=== PATIENT | male | born 1990 | race Two or more races ===

== ENCOUNTER 2017-02-03 10:31 | Emergency (ER) | payer SELFPAY ==
[~2017-02-03] VITALS: Ht 170.2 cm; Wt 68.9 kg
[~2017-02-03 10:31] MED LIST: IBUPROFEN600 MG ORAL; NKM; NORCO 5-325 TA1 EACH ORAL
[2017-02-03 11:02] VITALS: BP 127/91
[2017-02-03] MEDS ORDERED: ROBAXIN500 MG PO (11:21)
[2017-02-03] MEDS ORDERED: IBUPROFEN600 MG ORAL (11:21)
--- NOTE | 2017-02-03 11:26 | Emergency Room Report ---
History of Present Illness General Chief Complaint: Back Pain-No Injury Source: Patient Present Illness HPI 26 yo M F with p/w back pain for 1 days. Patient states pain stated today while he was in his car. Pain is localized to b/l upper back, sharp in nature, non radiating. Movement worsens pain. There is no alleviating factors. This is the first occurrence of back pain. Patient has experienced this similar pain in the past. pt states pain became better upon coming to the ED Denies trauma. Denies extremity weakness/numbness, no bowel/bladder retention or incontinence, saddle anesthesia. Denies fever, chills, abdominal pain, n/v, dysuria/hematuria. No history of IVDA Allergies: Coded Allergies: No Known Allergies (Unverified , 07/19/13) Patient History Past Medical History: none Past Surgical History: none Pertinent Family History: none Nursing Documentation-[facility] Past Medical History: No Stated History Review of Systems Musculoskeletal: Reports: back pain All Other Systems: negative except mentioned in HPI Physical Exam Vital Signs Date Time Temp Pulse Resp B/P Pulse Ox O2 Delivery O2 Flow Rate FiO2 02/03/17 10:49 98.1 69 18 127/91 99 Room Air General Appearance: normal inspection, well appearing, no apparent distress, alert, GCS 15, non-toxic Head: normocephalic, atraumatic Eyes: bilateral eye EOMI, bilateral eye PERRL, bilateral eye normal inspection ENT: normal ENT inspection, normal pharynx, normal voice, moist mucus membranes Neck: normal inspection, other - paraspinal cervical tenderness no midline tndenrsss. able to flex neck without issue. limited rom of rotation b/l but able to rotate >30 degrees Respiratory: normal inspection, lungs clear, normal breath sounds, no respiratory distress, no retraction, no wheezing, speaking full sentences, chest symmetrical Cardiovascular #1: normal inspection, regular rate, rhythm, no edema, normal capillary refill Gastrointestinal: normal inspection, non tender, soft, non-distended, no guarding Genitourinary: no CVA tenderness Musculoskeletal: normal inspection, normal range of motion, other - paraspinal thoracic and crvical tnderness no gross bonydeformities. 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 gait normal Medical Decision Making Diagnostic Impression: Primary Impression: Musculoskeletal back pain ER Course 26 yo M F with pw 1 day of back pain DDX: likely musculoskeletal back pain vs. muscular strain fracture is unlikely given patients age, no midline tenderness, no history of trauma, and that patient is ambulatory. Therefore, at this time no imaging is indicated Serious diagnoses such as cord compression, epidural abscess, meningitis is unlikely in this patient given the clinical scenario and abscess of neurological symptoms or findings. Patient appears nontoxic. Plan: motrin ER course: Patient has remained nontoxic appearing and ambulatory in the ED. Disposition: Patient will be discharged to home with prescription of motrin and robaxin. Patient cautioned of the effects of robaxin including possible impairment of physical or mental abilities. Patient was instructed to refrain from operating machinery or driving. Patient is also cautioned on the GI effects of motrin and to take sparingly. Patient verbalized understanding. Strict precautions discussed with patient on when to emergently return to the ED which includes severe/worsening back pain, leg weakness/numbness, urinary retention/incontinence, fever or chills, which may indicate severe illness. Patient is to follow up with their PMD within 5 days. Patient agrees with plan. Last Vital Signs Date Time Temp Pulse Resp B/P Pulse Ox O2 Delivery O2 Flow Rate FiO2 02/03/17 11:02 98.1 18 127/91 99 Room Air 02/03/17 10:49 69 Disposition: HOME, SELF-CARE Condition: Improved Scripts Ibuprofen* (MOTRIN*) 600 Mg Tablet 600 MG ORAL Q8H Y for For Pain, #30 TAB 0 Refills Prov: Yulia Riley M.D. 02/03/17 Methocarbamol* (ROBAXIN*) 500 Mg Tablet 500 MG PO QID, #28 TAB 0 Refills Prov: Yulia Riley M.D. 02/03/17 Referrals: NOT CHOSEN RAHDA/,REFERRING (PCP) Yulia Riley M.D. Feb 03, 2017 11:26
[2017-02-03 11:34] VITALS: BP 118/83
== END 2017-02-03 11:36 | disposition home or self-care (01) ==
LOC: EMR 11:10
DX: M54.9 Dorsalgia, unspecified (principal)
CPT/HCPCS: 99283

== ENCOUNTER 2018-02-25 10:16 | Emergency (ER) | payer OTHER ==
[~2018-02-25] VITALS: Ht 170.2 cm; Wt 68.0 kg
[~2018-02-25 10:16] MED LIST changes: +ROBAXIN500 MG PO
[2018-02-25 10:50] VITALS: BP 133/97
[2018-02-25 11:06] LABS: APPEARANCE,URINE CLEAR; BILIRUBIN, URINE NEGATIVE (NEGATIVE); COLOR,URINE PALE YELLOW; GLUCOSE, URINE (UA) NEGATIVE (NEGATIVE); KETONES,URINE NEGATIVE (NEGATIVE); LEUKOCYTE ESTERASE ,URINE NEGATIVE (NEGATIVE); NITRITE,URINE NEGATIVE (NEGATIVE); PH,URINE 8 (4.5-8.0); PROTEIN,URINE NEGATIVE (NEGATIVE); UROBILINOGEN,URINE NORMAL MG/DL (0.0-1.0)
--- NOTE | 2018-02-25 11:25 | Emergency Room Report ---
History of Present Illness General Chief Complaint: Abdominal Pain Source: Patient Present Illness HPI The patient states that he has pain in his left mid abdomen and left flank. He states that this is been going on for about 2 months. He associates the onset of the symptoms with a trip to [place]. He denies dysuria hematuria. He denies fever or chills. He denies nausea or vomiting. He denies constipation or diarrhea. He denies testicular pain. He denies penile discharge. He states that he has a low-grade achy pain. He states the pain resolves whenever he lays flat. He has worsening of the pain when he is standing and lifts his left thigh. He admits that he does do heavy lifting [place] He has no other complaints. Allergies: Coded Allergies: No Known Allergies (Unverified , 07/19/13) Patient History Past Medical History: none Past Surgical History: none Social History: Denies: smoking, alcohol use, drug use Reviewed Nursing Documentation: PMH: Agreed; PSxH: Agreed Nursing Documentation-PMH Past Medical History: No Stated History Review of Systems All Other Systems: negative except mentioned in HPI Physical Exam Vital Signs Date Time Temp Pulse Resp B/P (MAP) Pulse Ox O2 Delivery O2 Flow Rate FiO2 02/25/18 10:36 97.9 64 14 129/85 97 Room Air 97.9 Sp02 EP Interpretation: reviewed, normal General Appearance: no apparent distress, alert, GCS 15, non-toxic Head: normocephalic, atraumatic Eyes: bilateral eye normal inspection, bilateral eye PERRL ENT: hearing grossly normal, normal pharynx, no angioedema, normal voice Neck: full range of motion, supple/symm/no masses Respiratory: chest non-tender, lungs clear, normal breath sounds, no respiratory distress, no retraction, no accessory muscle use, speaking full sentences Cardiovascular #1: regular rate, rhythm, no edema Gastrointestinal: normal bowel sounds, non tender, soft, non-distended, no guarding, no rebound, other - When the patient stands he has a tenderness along the muscle on the left side. Rectal: deferred Musculoskeletal: back normal, gait/station normal, normal range of motion, non- tender, calf tenderness Neurologic: alert, oriented x3, responsive, motor strength/tone normal, sensory intact, speech normal Psychiatric: judgement/insight normal, memory normal, mood/affect normal, no suicidal/homicidal ideation Skin: normal color, no rash, warm/dry, well hydrated Medical Decision Making Diagnostic Impression: Primary Impression: Strain of muscle, fascia and tendon of abdomen, initial encounter ER Course This patient has a clinical presentation consistent with muscle strain. There are no red flags on physical exam or history that would make me concerned for underlying fracture. I did obtain a CT of the abdomen and pelvis as a precaution given the location for concern that there could be urolithiasis. However, CT of the abdomen and pelvis was negative. The patient has pain with range of motion and has tenderness to palpation along the muscle. There is no evidence of compartment syndrome. There is no neurologic deficit. The patient was instructed on supportive home measures. No emergency medical condition was identified. The patient was given return precautions and followup instructions. Laboratory Tests Test 02/25/18 10:51 Urine Color Pale yellow Urine Appearance Clear Urine pH 8 (4.5-8.0) Urine Specific Kenneth 1.010 (1.005-1.035) Urine Protein Negative (NEGATIVE) Urine Glucose (UA) Negative (NEGATIVE) Urine Ketones Negative (NEGATIVE) Urine Blood Negative (NEGATIVE) Urine Nitrite Negative (NEGATIVE) Urine Bilirubin Negative (NEGATIVE) Urine Urobilinogen Normal MG/DL (0.0-1.0) Urine Leukocyte Esterase Negative (NEGATIVE) Urine Opiates Screen Negative (NEGATIVE) Urine Barbiturates Screen Negative (NEGATIVE) Phencyclidine (PCP) Screen Negative (NEGATIVE) Urine Amphetamines Screen Negative (NEGATIVE) Urine Benzodiazepines Screen Negative (NEGATIVE) Urine Cocaine Screen Negative (NEGATIVE) Urine Marijuana (THC) Screen Negative (NEGATIVE) CT/MRI/US Diagnostic Results CT/MRI/US Diagnostic Results : Imaging Test Ordered: CT abd/pelvis Impression No acute findings. See official report. Last Vital Signs Date Time Temp Pulse Resp B/P (MAP) Pulse Ox O2 Delivery O2 Flow Rate FiO2 02/25/18 10:36 97.9 64 14 129/85 97 Room Air 97.9 Status: improved Disposition: HOME, SELF-CARE Condition: Improved Referrals: JOSE WALLACE,REFERRING (PCP) Sarina Gonsalez DO Feb 25, 2018 11:24
--- NOTE | 2018-02-25 12:04 | Diagnostic Imaging Report ---
Indication: Abdominal pain Technique: Continuous helical transaxial imaging of the abdomen and pelvis was obtained from the lung bases to the pubic symphysis. No intravenous contrast was administered. Coronal 2-D reformats were also obtained. Automatic Exposure Control was utilized. Total Dose length Product (DLP): 483.[address] Dose Index Volume (CTDIvol): 10.38 mGy Comparison: none Findings: Lung bases are clear. No nephrolithiasis or hydronephrosis identified. Urinary bladder is unremarkable. The appendix is normal. There is no free fluid or free air. There is no evidence of bowel obstruction. Evaluation of solid organs is limited on noncontrast imaging. IMPRESSION: No acute findings appreciated. Limited evaluation. The CT scanner at [facility] is accredited by the [employer] and the scans are performed using dose optimization techniques as appropriate to a performed exam including Automatic Exposure control.
[2018-02-25 12:50] VITALS: BP 129/81
== END 2018-02-25 12:53 | disposition home or self-care (01) ==
LOC: EMR 10:54
DX: S39.011A Strain of muscle, fascia and tendon of abdomen, initial encounter (principal); R10.84 Generalized abdominal pain; X58.XXXA Exposure to other specified factors, initial encounter; Y93.9 Activity, unspecified; Y92.9 Unspecified place or not applicable; Y99.9 Unspecified external cause status
CPT/HCPCS: 74176; 80307; 81003; 99284

== ENCOUNTER 2018-03-13 10:38 | Emergency (ER) | payer OTHER ==
[~2018-03-13] VITALS: Ht 170.2 cm; Wt 68.0 kg
--- NOTE | 2018-03-13 10:59 | Emergency Room Report ---
History of Present Illness General Chief Complaint: Dyspnea/Respdistress Source: Patient Present Illness HPI Patient presents with complaints of burning sensation to the left lower chest area Patient reports that he has been waking up in the middle night with shortness of breath sensation He also described a pleuritic component intermittently Patient reports symptoms ongoing for the past month He has spoken to his primary physician who was getting a referral to cardiology Patient also presented here with discomfort in the flank region and the beginning of February with CT imaging which was benign Today's report is regarding the burning sensation patient holds the lower rib cage on the left side mid axillary and midclavicular There is no rash that he has seen denies any fall or trauma Denies any recent travel denies any calf pain or swelling Allergies: Coded Allergies: No Known Allergies (Unverified , 07/19/13) Patient History Past Medical History: see triage record Pertinent Family History: none Reviewed Nursing Documentation: PMH: Agreed; PSxH: Agreed Nursing Documentation-PMH Past Medical History: No History, Except For History Of Psychiatric Problem: Yes - anxiety Review of Systems All Other Systems: negative except mentioned in HPI Physical Exam Vital Signs Date Time Temp Pulse Resp B/P (MAP) Pulse Ox O2 Delivery O2 Flow Rate FiO2 03/13/18 10:43 97.8 78 14 132/90 98 Room Air 97.9 Sp02 EP Interpretation: reviewed, normal General Appearance: well appearing, no apparent distress Head: normocephalic, atraumatic Eyes: bilateral eye PERRL, bilateral eye EOMI ENT: hearing grossly normal, normal pharynx, TMs + canals normal, uvula midline Neck: full range of motion, supple, no meningismus, no bony tend Respiratory: lungs clear, normal breath sounds, no rhonchi, no respiratory distress, no retraction, no accessory muscle use Cardiovascular #1: normal peripheral pulses, regular rate, rhythm, no edema, no gallop, no JVD, no murmur Gastrointestinal: normal bowel sounds, non tender, soft, no mass, no organomegaly, non-distended, no guarding, no hernia, no pulsatile mass, no rebound Genitourinary: no CVA tenderness Musculoskeletal: normal inspection Neurologic: oriented x3, responsive, immersion 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 III-XII nml as tested, motor strength/ tone normal, sensory intact Psychiatric: mood/affect normal Skin: normal color, no rash, warm/dry, palpation normal Lymphatic: normal inspection, no adenopathy Medical Decision Making Diagnostic Impression: Primary Impression: Chest pain Additional Impression: Pleurisy ER Course Given the patient's history exam and presentation multiple differentials are considered Including but not limited to cardiac, cardiopulmonary, vascular pathology patient has CT abdomen on file from recent presentation Also urine sample At this time x-ray and EKG were obtained Both within normal limits Patient describes some pleuritic component to his discomfort My suspicion for pulmonary embolism given his scoring is low EKG also does not show any obvious acute pathology With further discussion patient reports [place] and does do significant lifting and physical movements which she thinks might be contributing to his presentation Otherwise patient is stable for close outpatient follow-up EKG Diagnostic Results Rate: normal Rhythm: NSR ST Segments: no acute changes Rhythm Strip Diag. Results EP Interpretation: yes Rate: 66 Rhythm: NSR, no PVC's, no ectopy Chest X-Ray Diagnostic Results Chest X-Ray Diagnostic Results : Chest X-Ray Ordered: Yes # of Views/Limited/Complete: 1 View Indication: Chest Pain EP Interpretation: Yes Interpretation: no consolidation, no effusion, no pneumothorax Impression: No acute disease Electronically Signed by: Yecenia Kate DO Last Vital Signs Date Time Temp Pulse Resp B/P (MAP) Pulse Ox O2 Delivery O2 Flow Rate FiO2 03/13/18 10:56 70 14 Room Air 03/13/18 10:43 97.8 132/90 98 97.9 Status: improved Disposition: HOME, SELF-CARE Condition: Stable Scripts Ibuprofen* (MOTRIN*) 600 Mg Tablet 600 MG ORAL Q8H PRN for For Pain, #20 TAB 0 Refills Prov: Yecenia Kate DO 03/13/18 Additional Instructions: Patient is provided with the discharge instructions notified to follow up with primary doctor in the next 2-3 days otherwise return to the er with any worsening symptoms. Please note that this report is being documented using [employer] technology. This can lead to erroneous entry secondary to incorrect interpretation by the dictating instrument. Yecenia Kate DO Mar 13, 2018 10:59
[2018-03-13] MEDS ORDERED: IBUPROFEN600 MG ORAL (12:56)
[2018-03-13 13:35] VITALS: BP 132/90
--- NOTE | 2018-03-14 08:54 | Diagnostic Imaging Report ---
Indication: Chest pain, shortness of breath Technique: XRAY Chest 1v Comparison: None Findings: Heart size and mediastinal contours are within normal limits for AP technique. There is no focal consolidation, pneumothorax or pleural effusion. Osseous structures demonstrate no acute abnormality. Impression: No radiographic evidence of acute cardiopulmonary disease.
--- NOTE | 2018-03-14 19:56 | Cardiology Report ---
APPROVED REPORT EKG Measurement Heart [id number] Normal sinus rhythm with sinus arrhythmia Normal ECG
== END 2018-03-13 13:37 | disposition home or self-care (01) ==
LOC: EMR 11:01
DX: R07.9 Chest pain, unspecified (principal); F41.9 Anxiety disorder, unspecified; R09.1 Pleurisy
CPT/HCPCS: 71045; 93005; 99283

== ENCOUNTER 2018-05-10 07:54 | Emergency (ER) | payer OTHER ==
[~2018-05-10] VITALS: Ht 170.2 cm; Wt 65.8 kg
[2018-05-10 08:05] VITALS: BP 135/93
[2018-05-10 08:25] VITALS: BP 135/93
--- NOTE | 2018-05-10 08:28 | Emergency Room Report ---
History of Present Illness General Chief Complaint: Abdominal Pain Source: Patient Present Illness HPI Patient presents reporting that he's having similar discomfort to previous Reports that he is having ongoing issues with feeling abdominal cramping Diarrhea intermittently Increased nausea as well Denies any chest pain Denies any fevers or chills denies any neck pain or photophobia denies any recent travel He reports that the symptoms can occur without any warning Denies any blood in the stool denies any recent trauma Patient reports that he was also seen at [facility] and did not have any blood work done at that time Allergies: Coded Allergies: No Known Allergies (Unverified , 05/10/18) Patient History Past Medical History: see triage record Pertinent Family History: none Reviewed Nursing Documentation: PMH: Agreed; PSxH: Agreed Review of Systems All Other Systems: negative except mentioned in HPI Physical Exam Vital Signs Date Time Temp Pulse Resp B/P (MAP) Pulse Ox O2 Delivery O2 Flow Rate FiO2 05/10/18 07:57 97.9 72 16 135/93 100 Room Air Sp02 EP Interpretation: reviewed, normal General Appearance: well appearing, no apparent distress Head: normocephalic, atraumatic Eyes: bilateral eye PERRL, bilateral eye EOMI ENT: hearing grossly normal, normal pharynx, TMs + canals normal, uvula midline Neck: full range of motion, supple, no meningismus, no bony tend Respiratory: lungs clear, normal breath sounds, no rhonchi, no respiratory distress, no retraction, no accessory muscle use Cardiovascular #1: normal peripheral pulses, regular rate, rhythm, no edema, no gallop, no JVD, no murmur Gastrointestinal: normal bowel sounds, non tender, soft, no mass, no organomegaly, non-distended, no guarding, no hernia, no pulsatile mass, no rebound Genitourinary: no CVA tenderness Musculoskeletal: normal inspection Neurologic: oriented x3, responsive, 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, motor strength/ tone normal, sensory intact Psychiatric: mood/affect normal Skin: normal color, no rash, warm/dry, palpation normal Lymphatic: normal inspection, no adenopathy Medical Decision Making Diagnostic Impression: Primary Impression: abdominal pain ER Course With the history exam and presentation, multiple differentials considered, including but not limited to appendicitis, gastritis, cholecystitis, diverticulitis Patient has a fairly benign medical evaluation abdomen remains soft and benign Patient pointing mainly to the epigastric region however reports that the pain does travel a different areas at different times Currently does not have any nausea vomiting Patient has fairly extensive blood work and evaluation in our medical record system including CT imaging I feel patient would benefit from primary care physician follow-up along with possible GI specialty referral, at this time there are no other acute emergent findings requiring further evaluation Last Vital Signs Date Time Temp Pulse Resp B/P (MAP) Pulse Ox O2 Delivery O2 Flow Rate FiO2 05/10/18 08:05 97.9 70 16 135/93 100 Room Air Status: unchanged Disposition: HOME, SELF-CARE Condition: Stable Referrals: JOSE WALLACE,REFERRING (PCP) Patient Instructions: Abdominal Pain, Adult Additional Instructions: Patient is provided with the discharge instructions notified to follow up with primary doctor in the next 2-3 days otherwise return to the er with any worsening symptoms. Please note that this report is being documented using [employer] technology. This can lead to erroneous entry secondary to incorrect interpretation by the dictating instrument. Yecenia Kate DO May 10, 2018 08:28
== END 2018-05-10 08:31 | disposition home or self-care (01) ==
LOC: EMR 08:15
DX: R10.9 Unspecified abdominal pain (principal); R11.0 Nausea; R42 Dizziness and giddiness; R61 Generalized hyperhidrosis
CPT/HCPCS: 99282

== ENCOUNTER 2019-02-04 01:10 | Emergency (ER) | payer OTHER ==
[~2019-02-04] VITALS: Ht 170.2 cm; Wt 68.0 kg
--- NOTE | 2019-02-04 01:36 | Emergency Room Report ---
History of Present Illness General Chief Complaint: Abdominal Pain Source: Patient Present Illness HPI This is a 28-year-old male with no past medical history. He presents with chief complaint abdominal pain. Pain is diffuse. Ongoing for last for 5 days now. Nausea but no vomiting. No diarrhea. He had a large bowel movement and thought that it may be worms in there. He denies any other complaint. Pain is 8 out of 10. Worse with movement. He has not been outside of the country. No recent antibiotics. Allergies: Coded Allergies: No Known Allergies (Unverified , 05/10/18) Patient History Past Medical History: none, see triage record, old chart reviewed Past Surgical History: none Pertinent Family History: none Social History: Denies: smoking Immunizations: other Reviewed Nursing Documentation: PMH: Agreed; PSxH: Agreed Nursing Documentation-PMH Hx Gastrointestinal Problems: Yes - GERD History Of Psychiatric Problem: Yes - anxiety unmedicated Review of Systems Eye: Denies: eye pain, blurred vision ENT: Denies: ear pain, nose congestion, throat swelling Respiratory: Denies: cough, shortness of breath Cardiovascular: Denies: chest pain, palpitations Gastrointestinal: Reports: abdominal pain; Denies: diarrhea, nausea, vomiting Musculoskeletal: Denies: back pain, joint pain Skin: Denies: rash Neurological: Denies: headache, numbness Endocrine: Denies: increased thirst, increased urine Hematologic/Lymphatic: Denies: easy bruising All Other Systems: negative except mentioned in HPI Physical Exam Vital Signs Date Time Temp Pulse Resp B/P (MAP) Pulse Ox O2 Delivery O2 Flow Rate FiO2 02/04/19 01:19 98.1 78 17 142/87 (105) 98 Room Air Vitals unremarkable Sp02 EP Interpretation: reviewed, normal General Appearance: well appearing, no apparent distress, alert Head: normocephalic, atraumatic Eyes: bilateral eye PERRL, bilateral eye EOMI ENT: hearing grossly normal, normal pharynx Neck: full range of motion, supple, no meningismus Respiratory: chest non-tender, lungs clear, normal breath sounds Cardiovascular #1: regular rate, rhythm, no murmur Gastrointestinal: normal bowel sounds, no mass, no organomegaly, no bruit, non- distended, tenderness - Diffuse. Musculoskeletal: back normal, gait/station normal, normal range of motion Psychiatric: mood/affect normal Medical Decision Making Diagnostic Impression: Primary Impression: Abdominal pain Qualified Codes: R10.84 - Generalized abdominal pain ER Course Patient presents with generalized abdominal pain. No evidence of intestinal infection. No evidence of an acute abdomen or obstruction. He show me a picture of the stool that he took. What he thought was one look like fibrous material. He otherwise has no risk factor for intestinal infection. Has not been to any foreign country. Does not own any pets. Will discharge home with reassurance. CT/MRI/US Diagnostic Results CT/MRI/US Diagnostic Results : Imaging Test Ordered: CT abdomen pelvis Impression Negative per radiologist Last Vital Signs Date Time Temp Pulse Resp B/P (MAP) Pulse Ox O2 Delivery O2 Flow Rate FiO2 02/04/19 01:19 98.1 78 17 142/87 (105) 98 Room Air Status: improved Disposition: HOME, SELF-CARE Condition: Stable Scripts Ibuprofen* (MOTRIN*) 600 Mg Tablet 600 MG ORAL THREE TIMES A DAY, #30 TAB 0 Refills Prov: Mike Stewart MD 02/04/19 Patient Instructions: Abdominal Pain, Adult Additional Instructions: Follow-up with your doctor in 3 to 5 days for recheck if not better. Return if worse. Mike Stewart MD Feb 04, 2019 01:36
[2019-02-04] MEDS ORDERED: Ketorolac 30mg Inj IV ONE (01:45)
[2019-02-04 02:02] VITALS: BP 142/87
--- NOTE | 2019-02-04 02:02 | NUR ---
ER Nurse Note: Pt came from home c/o abd pain starting on the left abd radiating to the right and to the RT flank since Tuesday 01/30. Pt stated 01/28 sharp pain with nausea, no vomiting, slight diarrhea. Pt denies trauma to abd, no recent travels, no ingesting any abnormal items. All orders completed; awaiting lab results. Pt IV RT AC; infusing NS. Awaiting ERMD orders. All safety measures met; will continue to montior.
--- NOTE | 2019-02-04 02:09 | Diagnostic Imaging Report ---
EXAM: CT Abdomen and Pelvis Without Intravenous Contrast CLINICAL HISTORY: ABD PAIN TECHNIQUE: Axial computed tomography images of the abdomen and pelvis without intravenous contrast. CTDI is 12.33 mGy and DLP is 585.26 mGy-cm. One or more of the following dose reduction techniques were used: automated exposure control, adjustment of the mA and/or kV according to patient size, use of iterative reconstruction technique. COMPARISON: 02/25/18 FINDINGS: Imaged lung bases clear. There is nonspecific gastric distention. May be related to postprandial state. The gallbladder is contracted limiting evaluation. No urinary tract calculi or hydronephrosis. No evidence for acute pancreatitis or other acute abnormality of the unenhanced solid viscera. No bowel obstruction. Most of small bowel and portions of the colon decompressed limiting evaluation for mural thickening. No perienteric inflammatory changes. No appendicitis or other acute process. IMPRESSION: Nonspecific gastric distention. May be related to postprandial state. No evidence for appendicitis or other acute process.
[2019-02-04 02:11] LABS: APPEARANCE,URINE CLEAR; BILIRUBIN, URINE NEGATIVE (NEGATIVE); COLOR,URINE PALE YELLOW; GLUCOSE, URINE (UA) NEGATIVE (NEGATIVE); KETONES,URINE NEGATIVE (NEGATIVE); LEUKOCYTE ESTERASE ,URINE NEGATIVE (NEGATIVE); NITRITE,URINE NEGATIVE (NEGATIVE); PH,URINE 7 (4.5-8.0); PROTEIN,URINE NEGATIVE (NEGATIVE); UROBILINOGEN,URINE NORMAL MG/DL (0.0-1.0)
[2019-02-04 02:12] LABS: BASOPHILS % (AUTO) 1.4 % (0.0-2.0); EOSINOPHILS % (AUTO) 1.2 % (0.0-3.0); HEMATOCRIT 55.3 % (42.0-52.0); LYMPHOCYTES % (AUTO) 50.8 % (20.0-45.0); MEAN CORPUSCULAR VOLUME 89 FL (80-99); MONOCYTES % (AUTO) 10.4 % (1.0-10.0); NEUTROPHILS % (AUTO) 36.2 % (45.0-75.0); PLATELET COUNT 284 K/UL (150-450); RED BLOOD COUNT 6.21 M/UL (4.70-6.10); WHITE BLOOD COUNT 7.9 K/UL (4.8-10.8)
[2019-02-04 02:14] LABS: HEMOGLOBIN 19.3 G/DL (14.2-18.0)
[2019-02-04 02:21] LABS: ANION GAP 5 mmol/L (5-15); BLOOD UREA NITROGEN 15 mg/dL (7-18); CALCIUM 9.6 MG/DL (8.5-10.1); CARBON DIOXIDE 31 MMOL/L (21-32); CHLORIDE 107 MMOL/L (98-107); CREATININE 1.1 MG/DL (0.55-1.30); POTASSIUM 3.6 MMOL/L (3.5-5.1); SODIUM 143 MMOL/L (136-145)
[2019-02-04 02:25] LABS: ALANINE AMINOTRANSFERASE 39 U/L (12-78); ALBUMIN 4.2 G/DL (3.4-5.0); ALBUMIN/GLOBULIN RATIO 1.2 (1.0-2.7); ALKALINE PHOSPHATASE 104 U/L (46-116); ASPARTATE AMINO TRANSFERASE 25 U/L (15-37); BILIRUBIN,TOTAL 0.7 MG/DL (0.2-1.0)
[2019-02-04] MEDS ORDERED: IBUPROFEN600 MG ORAL (03:01)
[2019-02-04 03:08] VITALS: BP 142/87
--- NOTE | 2019-02-04 03:08 | NUR ---
ER Nurse Note: Pt seen, treated, medically cleared for discharge by ERMD. Discharge instuctions and prescriptions given with repeat verbalization by pt. Emphasized to follow up with primay care provider; take whole course of medication. Explained each medication. All orders completed per ERMD orders. Pt a&ox4, VSS, no signs of distress. ID band removed. IV removed; site clean and bandaged. All questions answered per pt's questions. Pt left with all belongings, left with own transportation.
== END 2019-02-04 03:08 | disposition home or self-care (01) ==
LOC: EMR 01:30
DX: R10.84 Generalized abdominal pain (principal); K21.9 Gastro-esophageal reflux disease without esophagitis; F41.9 Anxiety disorder, unspecified
CPT/HCPCS: 36415; 74176; 80053; 81003; 83690; 85025; 96361; 96374; 99284; J1885